=== PATIENT | male | born 1950 | race Caucasian/White ===

== ENCOUNTER → 2019-12-14 | Outpatient (CLI) | payer MEDICARE, MEDICAID ==
[~2019-12-14] MED LIST: ASPI81TA45 PO; ATOR-2 PO; LISI-167 PO; METO-93 PO
== END | disposition home or self-care (01) ==
LOC: STAR 11:36
PROVIDERS: ATTEND Surgery
DX: Z01.818 Encounter for other preprocedural examination (principal); I65.23 Occlusion and stenosis of bilateral carotid arteries
CPT/HCPCS: 93005

== ENCOUNTER 2019-12-21 05:58 | Inpatient (IN) | payer MEDICARE, MEDICAID ==
[~2019-12-21] VITALS: Ht 180.3 cm; Wt 83.1 kg
[2019-12-21] MEDS ORDERED: FENTANYL PF 250 MCG/5ML ONE (06:19)
[2019-12-21] MEDS ORDERED: NITROGLYCERIN/D5W PMX 0 ML ONE (06:26)
[2019-12-21] MEDS ORDERED: LACTATED RINGERS 1,000 ML IV SCH (06:43)
[2019-12-21 06:47] VITALS: BP 163/90
[2019-12-21] MEDS ORDERED: PROTAMINE SULFATE 10 MG/ML, 5ML ONE (06:50)
[2019-12-21] MEDS ORDERED: LIDOCAINE 1%, 20ML ONE (06:50)
[2019-12-21] MEDS ORDERED: HEPARIN 1,000 UNITS/ML, 10ML ONE (06:50)
[2019-12-21] MEDS ORDERED: BACITRACIN 50,000 UNIT ONE (06:50)
[2019-12-21] MEDS ORDERED: PAPAVERINE 30 MG/ML, 2ML ONE (06:50)
[2019-12-21] MEDS ORDERED: BUPIVACAINE/PF 0.5% ONE (06:51)
[2019-12-21] MEDS ORDERED: EPINEPHRINE 1 MG/ML, 1ML ONE (06:51)
[2019-12-21] MEDS ORDERED: LABETALOL 5MG/ML, 20ML IV PRN (07:00)
[2019-12-21] MEDS ORDERED: ONDANSETRON 2MG/ML, 2ML IV PRN ×2 (07:00→13:30)
[2019-12-21] MEDS ORDERED: OXYcodone 5 MG/5 ML ORAL.SOL UDC PO PRN (07:00)
[2019-12-21] MEDS ORDERED: hydrALAzine 20 MG/ML, 1ML IV PRN (07:00)
[2019-12-21] MEDS ORDERED: MORPHINE SULFATE 4 MG/ML, 1ML IVPush PRN (07:00)
[2019-12-21] MEDS ORDERED: HYDROmorphone 2 MG/ML, 1ML IVPush PRN (07:00)
[2019-12-21] MEDS ORDERED: MEPERIDINE/PF 25MG/ML,1ML IVPush PRN (07:00)
[2019-12-21] MEDS ORDERED: PHENYLEPHRINE 10 MG/ML ONE (07:20)
[2019-12-21] MEDS ORDERED: NEOSTIGMINE 1 MG/ML, 10ML ONE (07:43)
[2019-12-21] MEDS ORDERED: GLYCOPYRROLATE 0.2MG/1ML, 5ML ONE (07:43)
[2019-12-21] MEDS ORDERED: ROCURONIUM 10MG/ML,5ML ONE ×2 (07:43)
[2019-12-21] MEDS ORDERED: PROPOFOL 10 MG/ML, 20ML ONE (07:43)
[2019-12-21] MEDS ORDERED: CEFAZOLIN 1,000 MG ONE (07:43)
[2019-12-21] MEDS ORDERED: EPHEDRINE 50 MG/ML, 1ML ONE (07:57)
[2019-12-21] MEDS ORDERED: METOPROLOL 1 MG/ML, 5ML ONE (08:37)
[2019-12-21] MEDS ORDERED: hydrALAzine 20 MG/ML, 1ML ONE (08:37)
[2019-12-21] MEDS ORDERED: SUGAMMADEX 200 MG/2 ML IVPush ONE (08:50)
[2019-12-21] MEDS ORDERED: DOPAMINE/D5W PMX 250 ML IV PRN (09:30)
[2019-12-21] MEDS ORDERED: ONDANSETRON 2MG/ML, 2ML ONE (09:53)
[2019-12-21] MEDS: FENTANYL PF 100 MCG/2ML IV PRN ×2 (10:03→11:16)
[2019-12-21] MEDS ORDERED: FENTANYL PF 100 MCG/2ML ONE (10:07)
[2019-12-21] MEDS ORDERED: MORPHINE SULFATE 4 MG/ML, 1ML ONE (13:21)
[2019-12-21] MEDS ORDERED: LABETALOL 5MG/ML, 20ML IVPush PRN (13:30)
[2019-12-21] MEDS: morphine SULFATE 10 MG/ML, 1ML IV PRN ×2 (13:33→13:35)
[2019-12-21] MEDS: POTASSIUM CHLORIDE 20 MEQ in D5%-0.45% NACL 1,000 ML IV SCH (14:11)
[2019-12-21] MEDS: ENOXAPARIN 40 MG/0.4 ML SQ SCH (14:11)
[2019-12-21] MEDS: HYDROcodone/APAP 5/325 TABLET PO PRN ×3 (14:19→18:29)
[2019-12-21] MEDS: PHENYLEPHRINE 10 MG in DEXTROSE 5% 249 ML IV SCH ×3 (14:29→23:46)
[2019-12-21] MEDS: SODIUM CHLORIDE FLUSH 10ML SYR IVF SCH (21:29)
[2019-12-22] MEDS: POTASSIUM CHLORIDE 20 MEQ in D5%-0.45% NACL 1,000 ML IV SCH ×2 (03:14→16:27)
[2019-12-22] MEDS: HYDROcodone/APAP 5/325 TABLET PO PRN ×5 (05:00→21:10)
[2019-12-22] MEDS: PHENYLEPHRINE 10 MG in DEXTROSE 5% 249 ML IV SCH (07:11)
[2019-12-22 08:59] LABS: CREATININE 0.75 mg/dL (0.7-1.3)
[2019-12-22] MEDS: SODIUM CHLORIDE FLUSH 10ML SYR IVF SCH ×2 (09:13→20:01)
[2019-12-22] MEDS ORDERED: PHENYLEPHRINE 50 MG in SODIUM CHLORIDE 0.9% 245 ML IV PRN (09:30)
[2019-12-22] MEDS: ENOXAPARIN 40 MG/0.4 ML SQ SCH (14:03)
[2019-12-23] MEDS: HYDROcodone/APAP 5/325 TABLET PO PRN ×2 (02:30→08:08)
[2019-12-23] MEDS: POTASSIUM CHLORIDE 20 MEQ in D5%-0.45% NACL 1,000 ML IV SCH (06:07)
[2019-12-23] MEDS: SODIUM CHLORIDE FLUSH 10ML SYR IVF SCH (08:08)
[2019-12-23] MEDS ORDERED: TRAM50TA2 PO (09:34)
== END 2019-12-23 12:15 | disposition home or self-care (01) | DRG 39 ==
LOC: ORIP 05:58 → CSU 11:52 → DCLOUNGE 12-23 12:05
PROVIDERS: ADMIT Surgery; ATTEND Surgery
PROC: 03CK0ZZ Extirpation of Matter from Right Internal Carotid Artery, Open Approach (ICD-10-PCS; 2019-12-21)
PROC: 03HY32Z Insertion of Monitoring Device into Upper Artery, Percutaneous Approach (ICD-10-PCS; 2019-12-21)
PROC: 03UK0KZ Supplement Right Internal Carotid Artery with Nonautologous Tissue Substitute, Open Approach (ICD-10-PCS; principal; 2019-12-21 07:00)
DX: I65.21 Occlusion and stenosis of right carotid artery (principal); I10 Essential (primary) hypertension; E78.5 Hyperlipidemia, unspecified; M19.90 Unspecified osteoarthritis, unspecified site; Z87.891 Personal history of nicotine dependence
CPT/HCPCS: 36415; 82565; 86850; 86900; 87081; 95938; 95941; C1729; G0378; J0171; J0690; J1265; J1644; J1650; J2405; J2704; J2710; J2720; J3010; J3480; J7060; C1768; J0360; J2270; J2370; J2440; J7050; J7120